=== PATIENT | female | born 1965 | race Caucasian/White ===

== ENCOUNTER → 2020-09-15 11:14 | Outpatient (CLI) | payer OTHER, SELFPAY ==
--- NOTE | ~2020-09-15 | US_ITS ---
EXAMINATION: US thyroid DATE: 09/15/2020 11:28 INDICATION: Nontoxic single thyroid nodule. TECHNIQUE: Multiple ultrasound images of the thyroid were obtained. COMPARISON: 09/18/2019 and 05/30/2016 FINDINGS: The right thyroid lobe measures 6.5 x 1.8 x 2.3 cm. The left thyroid lobe is not visualized and is r eportedly been previously resected. No abnormal tissue in the left thyroid fossa. No interval change in size of a 12 mm mixed cystic and solid, hypoechoic, [id number] nodule with smooth margin and punctate echogenic foci (TI-RADS TR4). Also without significant interval change is a 1.6 cm solid, hy poechoic, [id number] nodule with partially smooth, partially ill-defined margin without echogeni c foci (TR4). 8 mm benign anechoic cystic nodule in the superior right thyroid lobe. Finally there is an unchanged 9 mm solid, mixed isoechoic and hypoechoic, [id number] nodule with lobulated mary lou n without echogenic foci (TR4) that yielded benign pathology on fine needle aspiration on 07/03/14. IMPRESSION: 1. No significant interval change in several right thyroid nodules. The largest 1.6 cm solid TI RADS 4 right thyroid nodule currently meet consensus criteria for biopsy which would be recommended. Reviewed, dictated and finalized at location . TRAPPER
== END ==
PROVIDERS: Visit Provider Internal Medicine Endocrinology, Diabetes & Metabolism
DX: E04.2 Nontoxic multinodular goiter (principal)
CPT/HCPCS: 76536

== ENCOUNTER → 2020-10-15 07:10 | Outpatient (CLI) | payer OTHER, SELFPAY ==
--- NOTE | ~2020-10-15 | XR_ITS ---
EXAMINATION: XR lumbar spine min 4V DATE: 10/15/2020 07:29 INDICATION: Osteophytosis, paresthesia TECHNIQUE: Anteroposterior, lateral, and bilateral oblique views of the lumbar spine, and cone-down l ateral view of the lumbosacral junction were obtained. COMPARISON: None. FINDINGS: There is no fracture. There are 3 mm of retrolisthesis of L5 on S1. The vertebral body heig hts are maintained. There is mild loss of intervertebral disc space height at L5-S1. The intervertebr al disc space heights are otherwise maintained. There is mild multilevel facet osteoarthritis. Small degenerative osteophytes project from the anterior endplates of multiple vertebral bodies. IMPRESSION: 1. Mild lumbar spondylosis without acute findings. Reviewed, dictated and finalized at location A. E SITTER
--- NOTE | ~2020-10-15 | XR_ITS ---
EXAMINATION: XR hip LT min 2V INDICATION: Osteophytosis, paresthesia TECHNIQUE: Two views of the left hip are obtained. COMPARISON: 04/06/2009 FINDINGS: There is mild osteoarthritis of the left hip. Bone alignment is normal. There is no fractur e. The soft tissues are unremarkable. IMPRESSION: 1. No acute osseous abnormality. Reviewed, dictated and finalized at location A. [employer]
== END ==
PROVIDERS: Visit Provider Chiropractor
DX: R20.2 Paresthesia of skin (principal); M47.896 Other spondylosis, lumbar region
CPT/HCPCS: 72110; 73502

== ENCOUNTER → 2022-09-29 07:26 | Outpatient (CLI) | payer BC, SELFPAY ==
--- NOTE | ~2022-09-29 | US_ITS ---
US thyroid INDICATION: Nontoxic multinodular goiter TECHNIQUE: Real-time sonographic images of the thyroid gland were obtained. COMPARISON: 09/15/2020 FINDINGS: The right thyroid lobe measures 6.4 x 1.5 x 2.3 cm. The left lobe is surgically absent. The re are multiple right thyroid masses, many of which are cysts. Largest dominant solid mass measures 1 .2 x 0.9 x 1.1 cm and is slightly hypoechoic, wider than tall, smoothly marginated without internal e chogenic foci, TR 4. This mass measured 1.6 x 1 x 1 cm on prior examination This mass is decreased in size compared with prior examination. IMPRESSION: 1. Stable multinodular goiter of the right thyroid gland. Dominant right thyroid mass has diminished in size, TR 4. Recommend follow-up ultrasound in 12 months. Reviewed, dictated and finalized at location A. [employer] IMPRESSION: 1. Stable multinodular goiter of the right thyroid gland. Dominant right thyro id mass has diminished in size, TR 4. Recommend follow-up ultrasound in 12 vu hs.
== END ==
PROVIDERS: PCP Internal Medicine; Visit Provider Internal Medicine Endocrinology, Diabetes & Metabolism
DX: E04.2 Nontoxic multinodular goiter (principal)
CPT/HCPCS: 76536

== ENCOUNTER → 2023-05-02 07:32 | Outpatient (CLI) | payer BC, SELFPAY ==
--- NOTE | ~2023-05-02 | XR_ITS ---
EXAMINATION: XR wrist LT min 3V DATE: 05/02/2023 07:52 INDICATION: Left wrist injury. TECHNIQUE: 4 views of left wrist were obtained. COMPARISON: None. FINDINGS: There is a transverse fracture of distal radial metaphysis. No involvement of the distal ar ticular surface or distal radioulnar joint. The distal fracture fragment demonstrates impaction and 2 mm posterior displacement. Ulnar styloid is intact. Joint spaces are normal. IMPRESSION: 1. Transverse fracture of distal radial metaphysis. Reviewed, dictated and finalized at location A.
== END ==
PROVIDERS: PCP Internal Medicine; Visit Provider Internal Medicine
DX: S52.92XA Unspecified fracture of left forearm, initial encounter for closed fracture (principal); T14.90XA Injury, unspecified, initial encounter
CPT/HCPCS: 73110

== ENCOUNTER 2025-04-21 13:16 | Outpatient (CLI) | payer OTHER, SELFPAY ==
--- NOTE | ~2025-04-21 | CT_ITS ---
CT Scan of the Chest without Contrast: Clinical Indication: Pulmonary nodule Technique: Contiguous sections were acquired throughout the chest without intravenous contrast. Dose reduction technique was used on this scan by utilizing automated exposure control and iterative recon struction technique. The dose-length product (DLP) was 94.50 mGy-cm. Findings: There is no evidence of any significant mediastinal, hilar or axillary lymphadenopathy. The mediastin al soft tissues appear normal. There is no evidence of pleural or pericardial effusion. There are a few grouped subcentimeter nodules in the superior segment left lower lobe, with overall b enign morphology. Images through the upper abdomen reveal no abnormalities. Pectus cavum deformity noted. Impression: A few grouped subcentimeter nodules in the superior segment left lower lobe, most likely benign. Pectus cavum deformity. Reviewed, dictated and finalized at [facility]. Impression: A few grouped subcentimeter nodules in the superior segment left lower lobe, mo st likely benign. Pectus cavum deformity.
== END 2025-04-21 13:17 | disposition home or self-care (01) ==
LOC: GOSHIMG 13:17
PROVIDERS: PCP Family Medicine; Visit Provider Family Medicine
DX: R91.1 Solitary pulmonary nodule (principal)
CPT/HCPCS: 71250

== ENCOUNTER 2025-04-21 13:17 | Outpatient (CLI) | payer OTHER, SELFPAY ==
--- NOTE | ~2025-04-21 | US_ITS ---
EXAMINATION: US thyroid DATE: 04/21/2025 13:40 INDICATION: Abnormal thyroid function testing. Personal history of left-sided thyroidectomy more than 20 years earlier TECHNIQUE: Multiple ultrasound images of the thyroid were obtained. COMPARISON: 09/29/2022. FINDINGS: The right thyroid lobe measures 6.0 x 2.9 x 1.5 cm. Within the right lobe of the thyroid gland is a 14 x 11 x 9 mm nodule: Composition -cystic Echogenicity -anechoic Shape - wider than tall Margin - smooth Echogenic foci - none. = TR 1, benign Within the right lobe of the thyroid gland is a 12 x 11 x 9 mm nodule: Composition -cystic Echogenicity -anechoic Shape - wider than tall Margin - smooth Echogenic foci - none. = TR 1, benign Within the right lobe of the thyroid gland is a 8.9 x 6.9 x 6.4 mm nodule: Composition - spongiform Echogenicity -hyperechoic and isoechoic (1) Shape - wider than tall Margin - smooth Echogenic foci - none. = TR 1, benign The left thyroid lobe is surgically absent. The isthmus measures 0.3cm in anterior to posterior dimension. There is otherwise normal echotexture and echogenicity throughout the remainder of the right lobe of the thyroid gland. No additional discrete nodules identified. Increased vascular flow is present. IMPRESSION: TR 1 nodules within the right lobe of the thyroid gland for which no FNA and no follow-up is recommen ded. The right lobe of the thyroid gland is hypervascular, suggesting Graves' disease versus chronic lymph ocytic thyroiditis (Rosalee's disease). While follow-up is not recommended (as per TIRADs criteria) it may be performed, at the discretion of the referring clinician. Reviewed, dictated and finalized at location A. IMPRESSION: TR 1 nodules within the right lobe of the thyroid gland for which no FNA and no follow-up is recommended. The right lobe of the thyroid gland is hypervascular, suggesting Graves' diseas e versus chronic lymphocytic thyroiditis (Rosalee's disease). While follow-up is not recommended (as per TIRADs criteria) it may be performed , at the discretion of the referring clinician.
== END 2025-04-21 13:18 | disposition home or self-care (01) ==
LOC: GOSHIMG 13:18
PROVIDERS: PCP Internal Medicine Endocrinology, Diabetes & Metabolism; Visit Provider Internal Medicine Endocrinology, Diabetes & Metabolism
DX: R79.89 Other specified abnormal findings of blood chemistry (principal); R91.8 Other nonspecific abnormal finding of lung field
CPT/HCPCS: 76536